=== PATIENT | female | born 1955 | race Caucasian/White ===

== ENCOUNTER 2017-08-06 12:23 | Day surgery (SDC) | payer MEDICAID, MEDICARE ==
[~2017-08-06] VITALS: Ht 154.9 cm; Wt 105.9 kg
[2017-08-06] MEDS ORDERED: [UNRECOGNIZED DRUG - OTHER] (12:38)
[2017-08-06] MEDS ORDERED: ALBU8.5H8 IH (12:39)
[2017-08-06] MEDS ORDERED: ACET-812 PO (12:39)
[2017-08-06] MEDS ORDERED: FLUT1DIS7 INH (12:40)
[2017-08-06] MEDS ORDERED: TIOT18CA3 (12:41)
[2017-08-06] MEDS ORDERED: LEVO25TA2 PO (12:42)
[2017-08-06] MEDS ORDERED: METF500T4 PO (12:42)
[2017-08-06] MEDS ORDERED: MONT10TA21 PO (12:43)
[2017-08-06] MEDS ORDERED: TRAM50TA2 PO (12:43)
[2017-08-06] MEDS ORDERED: VALS1TAB81 PO (12:49)
[2017-08-06] MEDS ORDERED: ASPI-611 PO (12:50)
[2017-08-06] MEDS ORDERED: FLUT1BLS3 (12:51)
[2017-08-06 13:01] VITALS: BP 129/70
[2017-08-06] MEDS ORDERED: fentaNYL/PF 50MCG/1 ML 2ML syringe ONE (13:13)
[2017-08-06] MEDS ORDERED: MIDAZolam 1mg/ml 10ml vial ONE (13:13)
[2017-08-06] MEDS ORDERED: LIDOcaine Viscous 15ml cup ONE (13:13)
[2017-08-06 14:31] VITALS: BP 149/93
[2017-08-06 14:40] VITALS: BP 139/84
[2017-08-06 14:50] VITALS: BP 159/88
[2017-08-06 15:00] VITALS: BP 154/91
== END 2017-08-06 15:25 | disposition home or self-care (01) ==
LOC: GI LAB 12:23
PROVIDERS: ATTEND Internal Medicine Gastroenterology
DX: K44.9 Diaphragmatic hernia without obstruction or gangrene (principal)
CPT/HCPCS: 43235; G0500; J2250; J3010; J7030; A4620

== ENCOUNTER 2023-02-13 07:19 | Emergency (ER) | payer BC, MEDICAID ==
[~2023-02-13] VITALS: Ht 154.9 cm; Wt 88.6 kg
[~2023-02-13 07:19] MED LIST: ACET-812 PO; ALBU8.5H17 IH; ASPI-611 PO; FLUT1BLS3; FLUT1DIS7 INH; LEVO25TA2 PO; METF-436 PO; MONT-47 PO; TIOT18CA3; TRAM50TA2 PO; VALS1TAB81 PO; [UNRECOGNIZED DRUG - OTHER]
[2023-02-13 07:49] LABS: URINE HCG NEGATIVE (NEG)
[2023-02-13 07:50] LABS: CLARITY,URINE SLIGHTLY CLOUDY (Clear); COLOR,URINE ORANGE (Yellow)
[2023-02-13 07:58] LABS: UA COLLECTION TYPE CLN CATCH MIDSTREAM
[2023-02-13 08:02] LABS: BACTERIA,URINE 3+ /HPF (Neg); MUCUS STRANDS FEW /LPF (Neg); RBC,URINE 0-2 /HPF (0-2); SQUAMOUS EPITHELIAL CELL,UR MANY /LPF (FEW); WBC CLUMPS,URINE FEW /HPF (NEGATIVE)
[2023-02-13] MEDS: diatr meglu/diatrizoate 30ml oral sol.-(3 dose) bottle PO SCH ×3 (08:05→09:22)
[2023-02-13] MEDS ORDERED: iohexol 300mg/ml 100ml inj. ONE (08:08)
[2023-02-13 08:13] LABS: BASOPHILS # (AUTO) 0.1 X10'3 (0-0.2); BASOPHILS % (AUTO) 0.3 % (0-1); EOSINOPHILS % (AUTO) 0.1 % (0-6); HEMATOCRIT 44.2 % (35.0-45.0); HEMOGLOBIN 14.9 g/dl (12.0-16.0); LYMPHOCYTES # (AUTO) 1.7 X10'3 (1.1-4.8); LYMPHOCYTES % (AUTO) 8.3 % (21-51); MEAN CORPUSCULAR HEMOGLOBIN 31.2 PG (27.0-31.0); MEAN CORPUSCULAR HGB CONC 33.8 g/dL (33.0-36.5); MEAN CORPUSCULAR VOLUME 92.1 FL (78-98); MEAN PLATELET VOLUME 6.9 FL (7.4-10.4); MONOCYTES # (AUTO) 1.6 X10'3 (0-0.9); MONOCYTES % (AUTO) 7.9 % (2-12); NEUTROPHILS % (AUTO) 83.4 % (42-75); PLATELET COUNT 380 X10'3 (140-440); RED CELL DISTRIBUTION WIDTH 14.2 % (11.5-14.5); WHITE BLOOD COUNT 20.4 X10'3 (4.5-11.0)
[2023-02-13 08:26] VITALS: TEMP 98.8
[2023-02-13 08:26] LABS: ALANINE AMINOTRANSFERASE 26 U/L (12-78); ALBUMIN/GLOBULIN RATIO 0.9 (1.1-1.5); ALKALINE PHOSPHATASE 145 IU/L (46-116); ANION GAP 14 (8-16); ASPARTATE AMINO TRANSFERASE 20 U/L (10-37); BILIRUBIN,TOTAL 1.1 MG/DL (0.1-1.0); BLOOD UREA NITROGEN 41 MG/DL (7-18); BUN/CREATININE RATIO 17.2 (10.0-20.0); CALCIUM 10.1 MG/DL (8.5-10.1); CHLORIDE 89 MMOL/L (99-107); CREATININE 2.39 MG/DL (0.40-0.90); GLUCOSE 217 MG/DL (70-104); LIPASE < 50 U/L (73-393); SODIUM 134 MMOL/L (135-145); TOTAL CARBON DIOXIDE 31.5 MMOL/L (24-32); TOTAL PROTEIN 8.7 G/DL (6.4-8.2); eGFR 20 ML/MIN
[2023-02-13 08:30] LABS: POTASSIUM 2.7 MMOL/L (3.5-5.1)
[2023-02-13] MEDS ORDERED: normal saline 1000ML IV soln IVB ONE (08:30)
[2023-02-13] MEDS ORDERED: traMADol 50MG tablet PO ONE (11:05)
[2023-02-13] MEDS ORDERED: AMOX-580 PO (12:04)
[2023-02-13] MEDS ORDERED: METR-159 PO (12:04)
[2023-02-13] MEDS ORDERED: metroNIDAZOLE 500mg tablet PO ONE (12:05)
[2023-02-13] MEDS ORDERED: amox tr/potassium clavulanate 875/125mg TAB PO ONE (12:05)
[2023-02-13] MEDS ORDERED: potassium Cl 20 mEq SR tablet PO ONE (12:10)
[2023-02-13 12:40] VITALS: BP 136/95; PULSE 104; RESP 17; O2SAT 93
== END 2023-02-13 12:41 | disposition home or self-care (01) ==
LOC: ER 07:20
DX: K57.92 Diverticulitis of intestine, part unspecified, without perforation or abscess without bleeding (principal); E87.6 Hypokalemia; I10 Essential (primary) hypertension; F17.200 Nicotine dependence, unspecified, uncomplicated; J44.9 Chronic obstructive pulmonary disease, unspecified; Z90.49 Acquired absence of other specified parts of digestive tract; Z88.5 Allergy status to narcotic agent; Z88.6 Allergy status to analgesic agent; Z79.82 Long term (current) use of aspirin; Z79.899 Other long term (current) drug therapy
CPT/HCPCS: 36415; 74176; 80053; 81001; 81025; 83690; 85025; 99285; J7030; Q9963; J3490; Q9967

== ENCOUNTER 2023-03-15 10:09 | Emergency (ER) | payer BC, MEDICAID ==
[~2023-03-15] VITALS: Ht 154.9 cm; Wt 109.2 kg
[~2023-03-15 10:09] MED LIST changes: +AMOX-580 PO
[2023-03-15 14:34] VITALS: TEMP 97.7
[2023-03-15 15:00] LABS: BILIRUBIN,URINE NEGATIVE (Neg); CLARITY,URINE CLOUDY (Clear); COLOR,URINE YELLOW (Yellow); GLUCOSE, URINE NEGATIVE (Neg); KETONES,URINE NEGATIVE (Neg); LEUKOCYTE ESTERASE ,URINE TRACE (Neg); NITRITES, URINE NEGATIVE (Neg); OCCULT BLOOD,URINE NEGATIVE (Neg); PROTEIN,URINE NEGATIVE (Neg); UROBILINOGEN,URINE 0.2 E.U/dL (0.2-1.0)
[2023-03-15 15:01] LABS: UA COLLECTION TYPE VOIDED
[2023-03-15 15:07] LABS: BACTERIA,URINE 1+ /HPF (Neg); MUCUS STRANDS FEW /LPF (Neg); RBC,URINE NONE SEEN /HPF (0-2); SQUAMOUS EPITHELIAL CELL,UR MANY /LPF (FEW); WBC,URINE 0-4 /HPF (0-4)
[2023-03-15 15:13] LABS: BASOPHILS # (AUTO) 0.1 X10'3 (0-0.2); EOSINOPHILS # (AUTO) 0.2 X10'3 (0-0.9); EOSINOPHILS % (AUTO) 2.6 % (0-6); HEMATOCRIT 38.9 % (35.0-45.0); HEMOGLOBIN 13.1 g/dl (12.0-16.0); LYMPHOCYTES # (AUTO) 2.3 X10'3 (1.1-4.8); LYMPHOCYTES % (AUTO) 26.5 % (21-51); MEAN CORPUSCULAR HEMOGLOBIN 31.6 PG (27.0-31.0); MEAN CORPUSCULAR HGB CONC 33.7 g/dL (33.0-36.5); MEAN CORPUSCULAR VOLUME 93.8 FL (78-98); MEAN PLATELET VOLUME 6.5 FL (7.4-10.4); MONOCYTES # (AUTO) 0.8 X10'3 (0-0.9); MONOCYTES % (AUTO) 9.2 % (2-12); NEUTROPHILS # (AUTO) 5.4 X10'3 (1.8-7.7); NEUTROPHILS % (AUTO) 60.7 % (42-75); PLATELET COUNT 351 X10'3 (140-440); RED BLOOD COUNT 4.14 X10'6 (4.20-5.60); RED CELL DISTRIBUTION WIDTH 14.4 % (11.5-14.5); WHITE BLOOD COUNT 8.8 X10'3 (4.5-11.0)
[2023-03-15 15:14] LABS: D-DIMER 2.19 MG/L FEU (0-0.50)
[2023-03-15 15:20] LABS: ALANINE AMINOTRANSFERASE 29 U/L (12-78); ALBUMIN 3.5 G/DL (3.4-5.0); ALBUMIN/GLOBULIN RATIO 0.8 (1.1-1.5); ALKALINE PHOSPHATASE 93 IU/L (46-116); ANION GAP 9 (8-16); ASPARTATE AMINO TRANSFERASE 16 U/L (10-37); BILIRUBIN,TOTAL 0.4 MG/DL (0.1-1.0); BLOOD UREA NITROGEN 11 MG/DL (7-18); BUN/CREATININE RATIO 9.6 (10.0-20.0); C-REACTIVE PROTEIN 2.22 MG/DL (0.0-0.5); CALCIUM 10.5 MG/DL (8.5-10.1); CHLORIDE 100 MMOL/L (99-107); CREATININE 1.15 MG/DL (0.40-0.90); GLUCOSE 144 MG/DL (70-104); LIPASE 74 U/L (73-393); POTASSIUM 3.5 MMOL/L (3.5-5.1); SODIUM 140 MMOL/L (135-145); TOTAL CARBON DIOXIDE 31.4 MMOL/L (24-32); eCRCL 37 ML/MIN; eGFR 47 ML/MIN
[2023-03-15 15:55] VITALS: BP 186/108; PULSE 99; RESP 18; O2SAT 98
--- NOTE | 2023-03-15 16:19 | NUR ---
Per patient she is not allergic to Tylenol as she had it before without problem. Admitted being allergic to [place]
== END 2023-03-15 16:59 | disposition home or self-care (01) ==
LOC: ER 10:10
DX: I80.9 Phlebitis and thrombophlebitis of unspecified site (principal); R10.9 Unspecified abdominal pain; I10 Essential (primary) hypertension; J44.9 Chronic obstructive pulmonary disease, unspecified; Z88.6 Allergy status to analgesic agent; Z88.5 Allergy status to narcotic agent; Z79.82 Long term (current) use of aspirin; Z98.890 Other specified postprocedural states
CPT/HCPCS: 36415; 74176; 80053; 81001; 83690; 85025; 85379; 86140; 93971; 99284